=== PATIENT | male | born 1935 | race Caucasian/White ===

== ENCOUNTER 2024-07-02 07:50 | Day surgery (SDC) | payer MEDICARE, BC, SELFPAY ==
[2024-07-01 13:56] VITALS: BMI 28.1
[2024-07-02] VITALS (11 sets, daily range): BP systolic 90–121; BP diastolic 60–99; PULSE 89–110; RESP 12–20; TEMP 36.3–36.6; O2SAT 92–100; BMI 27.2
[2024-07-02] MEDS: fentaNYL CIT INJ 50 mCg/ML AMP 2ML (ASD USE ONLY) IV (09:54)
[2024-07-02] MEDS: DiphenhydrAMINE INJ 50 MG/ML VIAL 25 MG IV (09:54)
[2024-07-02] MEDS: MIDAZOLAM INJ 1 MG/ML VIAL 2 ML (ASD USE ONLY) 2 MG IV (09:54)
== END 2024-07-02 11:12 | disposition home or self-care (01) ==
PROVIDERS: PCP Specialist; Referring Provider Specialist; Visit Provider Specialist
PROC: 0DBE8ZX Excision of Large Intestine, Via Natural or Artificial Opening Endoscopic, Diagnostic (ICD-10-PCS; CPT 45380; principal; 2024-07-02 08:30)
DX: Z12.11 Encounter for screening for malignant neoplasm of colon (principal); Z85.038 Personal history of other malignant neoplasm of large intestine; D12.2 Benign neoplasm of ascending colon; D12.3 Benign neoplasm of transverse colon
CPT/HCPCS: 45385; J1200; J2250; J3010